=== PATIENT | male | born 1940 | race Caucasian/White ===

== ENCOUNTER 2018-11-17 00:32 | Observation (INO) | payer MEDICARE, OTHER ==
[~2018-11-17] VITALS: Ht 170.2 cm; Wt 83.1 kg
[2018-11-17 00:44] VITALS: Ht 170.2 cm; Wt 83.1 kg
[2018-11-17] MEDS ORDERED: SOD CHLORIDE 0.9% 500 ML IV STA (00:44)
--- NOTE | 2018-11-17 02:45 | ERD ---
ER Documentation Chief Complaint Chief Complaint sudden onset CP x15 min, then syncope; then pain free. recent stent placemt HPI This is a very pleasant 70-year medicine onset of chest pain 15 minutes and a syncopal episode. He denies now pain free. Patient had multiple cardiac stents placed in the last 6 months. He says chest pain was sharp substernal nonexertional position no exacerbating relieving factors last for about 3 to 5 minutes before he passed out. He had no seizure-like activity per family was with him. He denies any focal neurologic complaints now. Denies any headache. Denies any palpitations. Currently is chest pain-free in the department. ROS All systems reviewed and are negative except as per history of present illness. Allergies Allergies: Coded Allergies: No Known Allergy (Unverified , 11/17/18) Physical Exam Vitals Vital Signs Date Temp Pulse Resp B/P (MAP) Pulse Ox O2 O2 Flow FiO2 Time Delivery Rate 11/17/18 97.0 65 18 129/77 100 00:44 (94) Physical Exam Const: No acute distress Head: Atraumatic Eyes: Normal Conjunctiva ENT: Normal External Ears, Nose and Mouth. Neck: Full range of motion. No meningismus. Resp: Clear to auscultation bilaterally Cardio: Regular rate and rhythm, no murmurs Abd: Soft, non tender, non distended. Normal bowel sounds Skin: No petechiae or rashes Back: No midline or flank tenderness Ext: No cyanosis, or edema Neur: Awake and alert Psych: Normal Mood and Affect Result Diagram: 11/17/18 0041 11/17/18 0041 Results 24 hrs Laboratory Tests Test 11/17/18 00:41 11/17/18 01:00 White Blood Count 8.1 10^3/ul Red Blood Count 4.65 10^6/ul Hemoglobin 14.2 g/dl Hematocrit 41.2 % Mean Corpuscular Volume 88.6 fl Mean Corpuscular Hemoglobin 30.5 pg Mean Corpuscular Hemoglobin Concent 34.5 g/dl Red Cell Distribution Width 12.8 % Platelet Count 171 10^3/UL Mean Platelet Volume 8.9 fl Immature Granulocytes % 0.200 % Neutrophils % 45.0 % Lymphocytes % 42.9 % Monocytes % 7.4 % Eosinophils % 3.8 % Basophils % 0.7 % Nucleated Red Blood Cells % 0.0 /100WBC Immature Granulocytes # 0.020 10^3/ul Neutrophils # 3.6 10^3/ul Lymphocytes # 3.5 10^3/ul Monocytes # 0.6 10^3/ul Eosinophils # 0.3 10^3/ul Basophils # 0.1 10^3/ul Nucleated Red Blood Cells # 0.0 10^3/ul Prothrombin Time 13.6 Sec Prothrombin Time Ratio 1.1 INR International Normalized Ratio 1.03 Activated Partial Thromboplast Time 25.1 Sec Sodium Level 139 mmol/L Potassium Level 3.9 mmol/L Chloride Level 104 mmol/L Carbon Dioxide Level 29 mmol/L Anion Gap 6 Blood Urea Nitrogen 18 mg/dl Creatinine 0.85 mg/dl Est Glomerular Filtrat Rate mL/min mL/min Glucose Level 125 mg/dl Calcium Level 9.1 mg/dl Troponin I < 0.012 ng/ml Bedside Glucose 120 mg/dL Current Medications Medications Dose Sig/Nate Start Time Status Last (Trade) Ordered Route PRN Stop Time Admin Dose Reason Admin Sodium 500 ml @ Q1H STAT 11/17/18 DC 11/17/18 Chloride 500 mls/hr IV 00:44 01:16 11/17/18 01:43 Procedures/MDM EKG: Rate/Rhythm: [Normal Sinus Rhythm] QRS, ST, T-waves: [No changes consistent w/ acute ischemia] Impression: [No evidence of ischemia or arrhythmia] Chest X-ray 1V Interpreted by me: Soft Tissue: No acute abnormalities Bones: No acute abnormalities Mediastinum/Cardiac Silhouette/Lungs: [No acute abnormalities] Patient's symptoms are concerning for cardiac cause will require inpatient workup and continuous monitoring. Further w/u for ischemia, arrhythmia, PE or dissection will be deferred to the inpatient team. Patient's syncopal symptoms are unstable at this time and require inpatient workup. No evidence of PE or dissection at this time but occult ischemia or fatal dysrhythmia cannot be ruled out. Accepting Care Team: Current data and ongoing care discussed. Time: 2:30 AM Primary Provider: Consulting: Deferred to inpatient team Outstanding Data: none Departure Diagnosis: Primary Impression: Syncope Syncope type: unspecified Qualified Codes: R55 - Syncope and collapse Condition: Serious OG JOSEPH November 17, 2018 02:45
[2018-11-17] MEDS ORDERED: ONDANSETRON 4 MG INJ IV STA (03:14)
[2018-11-17] MEDS ORDERED: morphine 4 MG/ML VIAL IV STA (03:14)
[2018-11-17] MEDS ORDERED: LOSA1TAB22 PO (04:12)
[2018-11-17] MEDS ORDERED: ASPI-817 PO (04:12)
[2018-11-17] MEDS ORDERED: ATOR20TA65 PO (04:12)
[2018-11-17] MEDS ORDERED: LUBI24CA7 PO (04:12)
[2018-11-17] MEDS ORDERED: CLOP75TA28 PO (04:12)
[2018-11-17] MEDS ORDERED: NON-FORMULARY/PATIENT OWN MED (Losartan-Hydrochlorothiazide (Losartan-HCTZ) 1 TAB) PO SCH (09:00)
[2018-11-17] MEDS: ASPIRIN (EC) 81 MG TAB PO SCH (09:58)
[2018-11-17] MEDS: CLOPIDOGREL 75 MG TAB PO SCH (09:58)
[2018-11-17] MEDS ORDERED: ONDANSETRON 4 MG INJ IV PRN (10:00)
[2018-11-17] MEDS ORDERED: ACETAMINOPHEN 325 MG TAB PO PRN (10:00)
--- NOTE | 2018-11-17 10:02 | QN ---
Documentation Comment Observation Note: Time: 4 hours Family Hx: Negative for diabetes Evaluation: Multiple exams showed improving symptoms and no evidence of clinical decompensation. ALEJO CASTILLO MD November 17, 2018 10:02
[2018-11-17] MEDS: LOSARTAN 50 MG TAB PO SCH (10:52)
[2018-11-17] MEDS: LUBIPROSTONE 24 MCG CAP PO SCH ×2 (10:53→20:42)
[2018-11-17] MEDS: HYDROCHLOROTHIAZIDE 12.5 MG CAP PO SCH (10:53)
[2018-11-17 13:03] VITALS: BP 130/71; PULSE 79; RESP 20
[2018-11-17 13:10] VITALS: BP 119/71; PULSE 72; RESP 20
--- NOTE | 2018-11-17 14:21 | HP ---
DATE OF ADMISSION: 11/17/2018 CHIEF COMPLAINT: Chest pain. HISTORY OF PRESENT ILLNESS: A 78-year-old male with known coronary artery disease and hypertension, presented to emergency room with complaint of severe and sharp chest pain that lasted about 15 minute s. The patient had associated diaphoresis. He denies any nausea, vomiting or shortness of breath. Following the episode of the chest pain, the patient had a near syncopal episode. He reports that he could hear his family members the whole time. The 911 was called. Following arrival to emergency r o, the patient was asymptomatic. Vital signs are stable. Initial troponin was normal. EKG shows normal sinus rhythm with no ST-T wave changes. Chest x-ray was unremarkable. CAT scan of the brain was also unremarkable except small vessel disease. The patient reports that he had a cardiac intervention on 08/24/2018 at [facility]. Two s tents were placed at that time. He does not recall whether he had acute ME at that time. PAST MEDICAL HISTORY: 1. Coronary artery disease. 2. Hypertension. 3. Hyperlipidemia. 4. Chronic constipation. MEDICATIONS PRIOR TO ADMISSION: 1. Plavix 75 mg daily. 2. Aspirin 81 mg daily. 3. Lipitor 20 mg at bedtime. 4. Losartan and hydrochlorothiazide 50/12.5 daily. 5. Amitiza 24 mcg b.i.d. SOCIAL HISTORY: The patient has remote history of smoking. He quit 20 years prior to admission. He also has history of drinking, but reports that he stopped drinking alcohol 1 year prior to admission . PHYSICAL EXAMINATION: GENERAL: Well-nourished male who is in no apparent distress. VITAL SIGNS: Blood pressure 111/81, pulse 61, respirations 16. He is afebrile. Saturation is 98% o n room air. HEENT: Extraocular muscles are intact. Pupils are equal and reactive to light bilaterally. Sclerae are anicteric. Oropharynx is clear and moist. NECK: Supple. No JVD, no carotid bruits. LUNGS: Clear to auscultation bilaterally. CARDIAC: Regular rate and rhythm. No audible murmurs or gallops. ABDOMEN: Soft, nontender, nondistended. Normoactive bowel sounds. EXTREMITIES: No clubbing, cyanosis or edema. NEUROLOGICAL: Cranial nerves II through XII are intact. Motor and sensory are intact in all extremi ties. Coordination is normal. LABORATORY DATA: WBC 8.1, hemoglobin 14.2, platelet count 171,000. BMP is within normal limits. Gl ucose is 125. Troponin is less than 0.012. ASSESSMENT: A 78-year-old male with acute onset of chest pain followed by near syncope versus syncop e. 1. Syncope. Symptoms have completely resolved since admission. 2. Coronary artery disease, status post PCI and stent placement about 3 months prior to admission. 3. Hypertension. 4. Hyperlipidemia. 5. Chronic constipation. PLAN: 1. Place in tele observation. 2. Repeat troponin 3. A 2D echo. 4. Cardiology consultation was requested. 5. I will attempt to obtain discharge summary from [facility]. Dictated By: LAINA JESUS/YOBANI Conf#: [id number] DID#: [id number]
--- NOTE | 2018-11-17 15:24 | CONS ---
Assessment/Plan Assessment/Plan Hospital Course (Demo Recall) Chest pain Near syncope CAD with history of PCI August 2018 Hypertension -Patient presents with chest pain at rest with near syncope during this episode. -Serial cardiac enzymes are negative, ECG with no significant ischemic abnormalities, preliminary echocardiogram with preserved left ventricular ejection fraction -Given negative biomarkers and ECG, would proceed with noninvasive evaluation with nuclear cardiac perfusion study. -Plan of care was discussed with patient's family over the phone in detail. Consultation Date/Type/Reason Admit Date/Time November 17, 2018 at 02:19 Type of Consult Cardiology Reason for Consultation Chest pain Date/Time of Note DATE: 11/17/18 TIME: 15:20 Hx of Present Illness This is a 78-year-old male with past medical history of hypertension, coronary artery disease status post PCI in August 2018 who presents with chest discomfort. Patient has noticed intermittent chest discomfort the past 2 days. Symptoms were nonexertional. Yesterday evening when patient was going to bed, he had sudden onset of left-sided chest pain. This was associated with shortness of breath. He became lightheaded and nearly passed out. In discussion with family, he was incontinent at this time. Since then he denies further chest pain or shortness of breath. Denies any dizziness or lightheadedness. He denies any current fevers or chills but did have chills last night. 12 point review of systems was performed with all pertinent positives and negat sravani mentioned above and all else is negative Past Medical History Medical History: coronary artery disease, high cholesterol, hypertension Home Meds Reported Medications Aspirin* (Aspirin* EC) 81 Mg Tablet., 81 MG PO DAILY for 30 Days, #30 11/17/18 Lubiprostone* (Amitiza*) 24 Mcg Capsule, 24 MG PO BID for 30 Days, #60 11/17/18 Clopidogrel Bisulfate (Clopidogrel) 75 Mg Tablet, 75 MG PO DAILY for 30 Days, #30 11/17/18 Losartan-Hydrochlorothiazide (Losartan-HCTZ) 50-12.5 Mg Tab, 1 TAB PO DAILY for 30 Days, #30 11/17/18 Atorvastatin Calcium (Atorvastatin Calcium) 20 Mg Tablet, 20 MG PO QHS for 30 Days, #30 11/17/18 Medications Current Medications Aspirin (Halfprin) 81 mg DAILY PO Last administered on 11/17/18at 09:58; Admin Dose 81 MG; Start 11/17/18 at 09:00 Atorvastatin Calcium (Lipitor) 20 mg QHS PO ; Start 11/17/18 at 21:00 Clopidogrel Bisulfate (plaVIX) 75 mg DAILY PO Last administered on 11/17/18at 0 9:58; Admin Dose 75 MG; Start 11/17/18 at 09:00 Lubiprostone (Amitiza) 24 mcg BID PO Last administered on 11/17/18at 10:53; Admin Dose 24 MCG; Start 11/17/18 at 10:30 Zolpidem Tartrate (Ambien) 5 mg HS MAY REPEAT X 1 PRN PO INSOMNIA; Start 11/17/18 at 21:00 Acetaminophen (Tylenol Tab) 650 mg Q4H PRN PO pain; Start 11/17/18 at 10:00 Ondansetron HCl (Zofran Inj) 4 mg Q4H PRN IV nausea; Start 11/17/18 at 10:00 Losartan Potassium (Cozaar) 50 mg DAILY PO Last administered on 11/17/18at 10:52; Admin Dose 50 MG; Start 11/17/18 at 10:30 Hydrochlorothiazide (Hydrochlorothiazide) 12.5 mg DAILY PO Last administered on 11/17/18at 10:53; Admin Dose 12.5 MG; Start 11/17/18 at 10:30 Allergies: Coded Allergies: No Known Allergy (Unverified , 11/17/18) Past Surgical History Past Surgical Hx: angioplasty Family History Significant Family History: no pertinent family hx Social History Smoking Status: Former smoker Exam/Review of Systems Vital Signs Vitals Vital Signs Date Temp Pulse Resp B/P (MAP) Pulse Ox O2 O2 Flow FiO2 Time Delivery Rate 11/17/18 97.6 72 20 119/71 98 Room Air 13:10 (87) Exam Constitutional: alert, oriented, well developed (No apparent distress) Head: normocephalic Respiratory: clear to auscultation, normal air movement Cardiovascular: regular rate and rhythm (S1-S2 heard) Gastrointestinal: soft, non-tender, bowel sounds Extremities: other (No significant edema) Labs Result Diagram: 11/17/18 0041 11/17/18 0041 Results 24hrs Laboratory Tests Test 11/17/18 00:41 11/17/18 01:00 11/17/18 09:47 White Blood Count 8.1 Red Blood Count 4.65 L Hemoglobin 14.2 Hematocrit 41.2 L Mean Corpuscular Volume 88.6 Mean Corpuscular Hemoglobin 30.5 Mean Corpuscular Hemoglobin Concent 34.5 Red Cell Distribution Width 12.8 Platelet Count 171 Mean Platelet Volume 8.9 Immature Granulocytes % 0.200 Neutrophils % 45.0 Lymphocytes % 42.9 Monocytes % 7.4 Eosinophils % 3.8 Basophils % 0.7 Nucleated Red Blood Cells % 0.0 Immature Granulocytes # 0.020 Neutrophils # 3.6 Lymphocytes # 3.5 H Monocytes # 0.6 Eosinophils # 0.3 Basophils # 0.1 Nucleated Red Blood Cells # 0.0 Prothrombin Time 13.6 Prothrombin Time Ratio 1.1 INR International Normalized Ratio 1.03 Activated Partial Thromboplast Time 25.1 Sodium Level 139 Potassium Level 3.9 Chloride Level 104 Carbon Dioxide Level 29 Anion Gap 6 Blood Urea Nitrogen 18 Creatinine 0.85 Est Glomerular Filtrat Rate mL/min Glucose Level 125 Calcium Level 9.1 Troponin I < 0.012 < 0.012 Bedside Glucose 120 Imaging Imaging ECG demonstrates sinus rhythm at 60 bpm, QRS 90 ms, no significant ischemic ST abnormalities Medications Medications Current Medications Aspirin (Halfprin) 81 mg DAILY PO Last administered on 11/17/18at 09:58; Admin Dose 81 MG; Start 11/17/18 at 09:00 Atorvastatin Calcium (Lipitor) 20 mg QHS PO ; Start 11/17/18 at 21:00 Clopidogrel Bisulfate (plaVIX) 75 mg DAILY PO Last administered on 11/17/18at 09:58; Admin Dose 75 MG; Start 11/17/18 at 09:00 Lubiprostone (Amitiza) 24 mcg BID PO Last administered on 11/17/18at 10:53; Admin Dose 24 MCG; Start 11/17/18 at 10:30 Zolpidem Tartrate (Ambien) 5 mg HS MAY REPEAT X 1 PRN PO INSOMNIA; Start 11/17/18 at 21:00 Acetaminophen (Tylenol Tab) 650 mg Q4H PRN PO pain; Start 11/17/18 at 10:00 Ondansetron HCl (Zofran Inj) 4 mg Q4H PRN IV nausea; Start 11/17/18 at 10:00 Losartan Potassium (Cozaar) 50 mg DAILY PO Last administered on 11/17/18at 10:52; Admin Dose 50 MG; Start 11/17/18 at 10:30 Hydrochlorothiazide (Hydrochlorothiazide) 12.5 mg DAILY PO Last administered on 11/17/18at 10:53; Admin Dose 12.5 MG; Start 11/17/18 at 10:30 Js Kasper DO November 17, 2018 15:24
[2018-11-17 15:25] VITALS: BP 118/59; PULSE 63; RESP 20
[2018-11-17] MEDS ORDERED: REGADENOSON 0.4 MG/5 ML SYG ONE (16:38)
[2018-11-17 16:58] VITALS: PULSE 62
--- NOTE | 2018-11-17 17:00 | RADRPT ---
Echocardiogram Report Patient Name: Radha LITTLE ID: [id number] : 1940 (78y 10m)Study Date: 11/17/2018 12:04:40 PM Gender: MAccession #: [id number] Tech: Chelsie Winters RDCS Location: [facility] Ref.Physician: LAINA YOUNGER Height(Cm): BSA: Weight(Kg): Quality: AdequateOrder Physician: LAINA YOUNGER Account #: Procedures: Echocardiographic Report: Transthoracic echocardiogram with complete 2D, M-Mode, and doppler examination. Indications: Chest Pain, and Syncope. Measurements: 2D/M Mode Doppler Measurement Value Normal Range Measurement Value Normal Range LVIDd 2D 4.8 [ 4.2 - 5.8 ] cm AV Peak Mario 1.4 [ 100.0 - 170.0 ] cm/sec LVIDs 2D 2.3 [ 2.5 - 4.0 ] cm AV Peak PG 8.0 [ 2.0 - 9.0 ] mmHg LVPWd 2D 1.1 [ 0.6 - 1.0 ] cm AI Peak PG 71.0 mmHg IVSd 2D 1.1 [ 0.6 - 1.0 ] cm AI Peak Mario 4.2 cm/sec AoR Diam 2D 2.4 [ 2.6 - 3.4 ] cm AI PHT 488.0 msec EDV 2D 109.0 [ 62.0 - 150.0 ] ml LVOT Peak Mario 0.9 [ 70.0 - 110.0 ] cm/sec ESV 2D 17.7 [ 21.0 - 61.0 ] ml LVOT Peak PG 3.0 [ 2.0 - 6.0 ] mmHg EF 2D 83.8 [ 52.0 - 72.0 ] percent MV E Peak Mario 0.6 [ 60.0 - 130.0 ] cm/sec LA Dimen 2D 2.6 [ 3.0 - 4.0 ] cm MV A Peak Mario 0.8 [ 100.0 - 120.0 ] cm/sec MV E/A 0.7 [ 0.8 - 1.5 ] ratio MV Decel Time 176 [ 104 - 258 ] msec Lat E` Mario 0.1 [ 10.0 - 15.0 ] cm/sec Lateral E/E` 9.5 [ 1.0 - 2.0 ] ratio MV E/A 0.7 [ 0.8 - 1.5 ] ratio Findings: Left Ventricle: Overall, normal left ventricular systolic function. Not all segments visualized. Normal left ventricular cavity size. Mild concentric left ventricular hypertrophy. Ejection fraction is visually estimated at 60 %. Tissue Doppler/Mitral Doppler indices are consistent with impaired relaxation (Stage I diastolic dysfunction). Right Ventricle: Normal right ventricular size. Normal right ventricular systolic function. Left Atrium: The left atrium is normal in size. Right Atrium: The right atrium is normal in size. Mitral Valve: Normal appearance and function of the mitral valve with trace physiologic regurgitation. Aortic Valve: No hemodynamically significant aortic stenosis by doppler. Aortic cusps appear mildly calcified. Trace aortic valve regurgitation. Tricuspid Valve: Normal appearance and function of the tricuspid valve with trace physiologic regurgitation. Pulmonic Valve: Pulmonic valve not well visualized. Pericardium: Normal pericardium with no significant pericardial effusion. Aorta: Normal aortic root. IVC: Normal size and normal respiratory collapse consistent with normal right atrial pressure. Conclusions: Overall, normal left ventricular systolic function. Not all segments visualized. Normal left ventricular cavity size. Mild concentric left ventricular hypertrophy. Ejection fraction is visually estimated at 60 %. Tissue Doppler/Mitral Doppler indices are consistent with impaired relaxation (Stage I diastolic dysfunction). Normal right ventricular size. Normal right ventricular systolic function. The left atrium is normal in size. The right atrium is normal in size. No significant valvular stenosis or regurgitation seen. Normal pericardium with no significant pericardial effusion. Electronically Signed By: Js Kasper 2018-11-17 17:00:13 PDT
[2018-11-17 20:14] VITALS: PULSE 66
[2018-11-17 20:40] VITALS: BP 154/79; PULSE 69; RESP 18
[2018-11-17] MEDS ORDERED: ATORVASTATIN 20 MG TAB PO SCH (21:00)
[2018-11-17] MEDS ORDERED: ZOLPIDEM 5 MG TAB PO PRN (21:00)
[2018-11-18] VITALS (8 sets, daily range): BP systolic 126–143; BP diastolic 67–78; PULSE 62–81; RESP 18–20
--- NOTE | 2018-11-18 09:16 | PDOCDIS ---
Discharge Instructions CONDITION [id number] Patient Condition: [id number] Good HOME CARE INSTRUCTIONS: Glenn Diet Instructions: [id number] Low Fat /Cholesterol ACTIVITY: [id number] Activity Restrictions: [id number] No Restrictions FOLLOW UP/APPOINTMENTS Follow-up Plan pcp 1 week LAINA YOUNGER MD November 18, 2018 09:16
[2018-11-18] MEDS: LUBIPROSTONE 24 MCG CAP PO SCH (09:33)
[2018-11-18] MEDS: HYDROCHLOROTHIAZIDE 12.5 MG CAP PO SCH (09:33)
[2018-11-18] MEDS: CLOPIDOGREL 75 MG TAB PO SCH (09:34)
[2018-11-18] MEDS: ASPIRIN (EC) 81 MG TAB PO SCH (09:34)
[2018-11-18] MEDS: LOSARTAN 50 MG TAB PO SCH (09:34)
--- NOTE | 2018-11-18 13:14 | CONS ---
Assessment/Plan Assessment/Plan Hospital Course (Demo Recall) Chest pain, resolved Near syncope CAD with history of PCI August 2018 Preserved left ventricular ejection fraction echocardiogram 11/17/2018 Normal nuclear cardiac perfusion study 11/17/2018 Hypertension -Denies any further chest pain, shortness of breath, dizziness or near syncope -Nuclear cardiac perfusion study has been negative, echocardiogram with preserved left ventricular ejection fraction, serial cardiac enzymes remain negative. -We will continue dual antiplatelet therapy. DC planning -Outpatient follow-up with patient's primary letter carrier Consultation Date/Type/Reason Admit Date/Time November 17, 2018 at 02:19 Initial Consult Date Type of Consult Cardiology Date/Time of Note DATE: 11/18/18 TIME: 13:12 24 HR Interval Summary Free Text/Dictation No shortness of breath, chest pain, palpitations or dizziness. Ambulating as well without symptoms Exam/Review of Systems Vital Signs Vitals Vital Signs Date Temp Pulse Resp B/P (MAP) Pulse Ox O2 O2 Flow FiO2 Time Delivery Rate 11/18/18 71 12:07 11/18/18 97.6 20 126/67 97 11:12 (86) 11/17/18 Room Air 13:10 Intake and Output 11/17/18 11/17/18 11/18/18 1515:00 23:00 07:00 IntakeIntake Total 470 ml BalanceBalance 470 ml Exam Constitutional: alert, oriented (No apparent distress) Head: normocephalic Respiratory: clear to auscultation, normal air movement Cardiovascular: regular rate and rhythm (S1-S2 heard) Gastrointestinal: soft, non-tender, bowel sounds Extremities: other (No significant edema) Labs Result Diagram: 11/17/18 0041 11/17/18 0041 Results 24hrs Laboratory Tests Test 11/17/18 14:13 Troponin I < 0.012 Medications Medications Current Medications Aspirin (Halfprin) 81 mg DAILY PO Last administered on 11/18/18at 09:34; Admin Dose 81 MG; Start 11/17/18 at 09:00 Atorvastatin Calcium (Lipitor) 20 mg QHS PO Last administered on 11/17/18at 20:42; Admin Dose 20 MG; Start 11/17/18 at 21:00 Clopidogrel Bisulfate (plaVIX) 75 mg DAILY PO Last administered on 11/18/18at 09:34; Admin Dose 75 MG; Start 11/17/18 at 09:00 Lubiprostone (Amitiza) 24 mcg BID PO Last administered on 11/18/18at 09:33; Adm in Dose 24 MCG; Start 11/17/18 at 10:30 Zolpidem Tartrate (Ambien) 5 mg HS MAY REPEAT X 1 PRN PO INSOMNIA; Start 11/17/18 at 21:00 Acetaminophen (Tylenol Tab) 650 mg Q4H PRN PO pain; Start 11/17/18 at 10:00 Ondansetron HCl (Zofran Inj) 4 mg Q4H PRN IV nausea; Start 11/17/18 at 10:00 Losartan Potassium (Cozaar) 50 mg DAILY PO Last administered on 11/18/18at 09:34; Admin Dose 50 MG; Start 11/17/18 at 10:30 Hydrochlorothiazide (Hydrochlorothiazide) 12.5 mg DAILY PO Last administered on 11/18/18 09:33; Admin Dose 12.5 MG; Start 11/17/18 at 10:30 Js Kasper DO November 18, 2018 13:14
--- NOTE | 2018-11-18 20:55 | DS ---
DATE OF ADMISSION: 11/17/2018 DATE OF DISCHARGE: 11/18/2018 DISCHARGE DIAGNOSES: 1. A 78-year-old male with atypical chest pain. 2. Near syncope, resolved. 3. Coronary artery disease, stable. 4. Hypertension. 5. Hyperlipidemia. 6. Status post percutaneous coronary intervention and stent placement about 3 months prior to admiss ion. 7. Chronic constipation. PROCEDURES DURING HOSPITALIZATION: A CAT scan of the brain and Lexiscan stress test. HOSPITAL COURSE: A 78-year-old male with known coronary artery disease status post PCI and stent alber cement at [facility] on 08/24/2018 presented to emergency room with complaint of sharp left- sided chest pain lasting about 15 minutes followed by near syncope and diaphoresis. Acute myocardial infarction was ruled out. CAT scan of the brain was unremarkable. The patient was seen in consultation by the manager project management, Dr. Kasper. Lexiscan stress test was recom mended. This study showed no evidence of new perfusion defects. No new wall motion abnormalities we re noted. The left ventricular ejection fraction at stress was 63%. Prior EF was 64%. The patient remained stable during hospitalization. He is in a stable condition for discharge. MEDICATIONS ON DISCHARGE: 1. Aspirin 81 mg daily. 2. Lipitor 20 mg at bedtime. 3. Plavix 75 mg daily. 4. Losartan/hydrochlorothiazide 50/12.5 mg p.o. daily. 5. Amitiza 24 mg p.o. b.i.d. Follow up with PCP in 1 week. Dictated By: LAINA JESUS/YOBANI Conf#: [id number] DID#: [id number] CC: GLADYS KASPER DO;*EndCC*
== END 2018-11-18 14:01 | disposition home or self-care (01) ==
LOC: E/R 00:32 → 6WM 02:19
PROVIDERS: ADMIT Internal Medicine; ATTEND Internal Medicine
DX: R07.89 Other chest pain (principal); R55 Syncope and collapse; I25.10 Atherosclerotic heart disease of native coronary artery without angina pectoris; Z95.5 Presence of coronary angioplasty implant and graft; I10 Essential (primary) hypertension; E78.5 Hyperlipidemia, unspecified; K59.00 Constipation, unspecified; Z79.02 Long term (current) use of antithrombotics/antiplatelets; Z79.82 Long term (current) use of aspirin; Z87.891 Personal history of nicotine dependence
CPT/HCPCS: 36415; 70450; 71045; 78452; 80048; 82962; 84484; 85025; 85610; 85730; 93005; 93017; 93306; 99285; A9500; A9505; G0378; J2270; J2405; J2785; J7040; 99217